=== PATIENT | male | born 1955 | race Caucasian/White ===

== ENCOUNTER → 2016-04-21 | Outpatient (CLI) | payer BC ==
--- NOTE | 2016-04-21 18:24 | PN ---
DATE OF SERVICE: 04/21/2016 This patient is a 60-year-old gentleman who has been followed in the sleep center for treatment of obstructive sleep apnea/hypopnea syndrome. Patient continues to use his CPAP equipment every night for the whole night, basically without any significant problems. No snoring with the machine. [place] Sleepiness Scale is 4. Patient's weight today is 252 pounds, which is about 2 pounds more than one year ago. The patient sleeps well with the equipment and feels well during the day. MEDICATIONS: 1. Bystolic. 2. Clonidine. 3. Amlodipine. 4. Hydrochlorothiazide. 5. Losartan. 6. Potassium supplement. 7. Ranitidine. 8. Atorvastatin. 9. Aspirin. 10. Probiotic. 11. Vitamins. 12. Xanax on p.r.n. basis. During physical exam, patient is in no distress. VITAL SIGNS: BP 149/82, HR 62, RR 16. Height 5 feet 8 inches. Weight 252. BMI 38.3. Neck 19 inches in circumference. Temperature 97.7. Oxygen saturation at room air 94%. HEENT: PERRLA, EOMI. Evaluation of oropharynx showed tongue protrudes midline. NECK: Supple. No JVD. Thyroid is not palpable. LUNGS: Clear to percussion and to auscultation. Good air exchange. No wheezing or rhonchi. HEART: S1, S2 regular. No murmurs, gallops or rubs. ABDOMEN: Soft and nontender. Bowel sounds are present. No organomegaly appreciated. EXTREMITIES: No clubbing or cyanosis. VENEER STAPLER: Awake, alert, and oriented x3. Cranial nerves 2 to 7 intact. There is no fasciculation or atrophy noted. No focal deficits observed. IMPRESSION: 1. Obstructive sleep apnea/hypopnea syndrome, controlled with CPAP. Patient is benefitting from treatment. No snoring. No sleepiness. 2. Hypertension. 3. Obesity. 4. Coronary artery disease. 5. History of anxiety. 6. Diabetes mellitus. 7. Hyperlipidemia. 8. Status post right knee replacement. PLAN: 1. Prescription for all necessary CPAP supplies, including mask, tube, filters. 2. Continue to use CPAP equipment every night for the whole night. 3. Losing weight. 4. Sleep hygiene with regular time in bed for at least 8 hours. 5. Follow-up visit in one year. Thank you very much for allowing me to participate in the management of your patient. Sincerely, Jovanny Salazar MD, PhD, FAASM. Diplomat of [place] [employer], Sleep Medicine Board by [place] [employer] [employer] Glass Sander of [facility] [place]
== END | disposition home or self-care (01) ==
LOC: SLEEP 13:19
PROVIDERS: ATTEND Internal Medicine
DX: G47.33 Obstructive sleep apnea (adult) (pediatric) (principal); I10 Essential (primary) hypertension; E66.9 Obesity, unspecified; Z68.38 Body mass index [BMI] 38.0-38.9, adult; I25.10 Atherosclerotic heart disease of native coronary artery without angina pectoris; F41.9 Anxiety disorder, unspecified; E11.9 Type 2 diabetes mellitus without complications; E78.5 Hyperlipidemia, unspecified; Z96.651 Presence of right artificial knee joint; Z79.899 Other long term (current) drug therapy

== ENCOUNTER → 2017-06-15 | Outpatient (CLI) | payer BC ==
--- NOTE | 2017-06-15 11:52 | SFUN ---
SLEEP STUDY FOLLOW UP NOTE DATE OF SERVICE: 06/15/2017 A 61-year-old gentleman who has been followed in the Sleep Center for treatment of obstructive sleep apnea-hypopnea syndrome. Patient successfully continued to use his CPAP equipment every night for the whole night. He went to [place], took his equipment with him, now he returned back. No snoring with the CPAP. [place] Sleepiness Scale is only 2. Patient sleeps well with CPAP. He does not have awakenings, feels well during the day. I checked his CPAP unit. Usage is 100% of the time, more than 4 hours. Average usage is 7.1 hours. CPAP pressure 11 cm of water. Machine does not have information about patient breathing during the sleep. MEDICATIONS: Bystolic, clonidine, losartan, hydrochlorothiazide, ranitidine, Lipitor, potassium supplement, Celebrex, low-dose aspirin, vitamin D, multivitamins. PHYSICAL EXAM: Patient in no distress. BP 159/86, HR 64, RR 16, height 5, 7-1/2, weight 235.4, BMI 36.2, temperature 97.8, oxygen saturation at room air 96%. OROPHARYNX: Low position of soft palate. HEART: S1-S2 irregular. ABDOMEN: Slightly obese. Neck Supple, no JVD. Thyroid is not palpable. LUNGS Clear to percussion and to auscultation. Good air exchange. No wheezing or rhonchi. EXTREMITIES No clubbing or cyanosis. FILM PAINTER Awake, alert, and oriented X3. Cranial nerves 2 to 7 intact. There is no fasciculation or atrophy. noted. No focal deficits observed. IMPRESSION: 1. Obstructive sleep apnea-hypopnea syndrome. Patient demonstrated 100% compliance with treatment benefitting with treatment. 2. Irregular heartbeats by auscultation. 3. Hypertension, possibly not on full control with medications. Blood pressure increased in the office. 4. Acid reflux. 5. Hyperlipidemia. 6. History of anxiety. 7. Status post right knee replacement. PLAN: 1. Continue treatment with CPAP every night for the whole night. 2. Prescription for all necessary CPAP supplies including mask, tube, filters. 3. We will check if patient is eligible to replace his CPAP unit for the new one. Replacement of the unit if possible to check, also to follow apnea-hypopnea index reading from the machine. 4. Losing weight. 5. Sleep hygiene with regular time in bed for at least 8 hours. 6. No driving if feeling any sleepiness. 7. Patient will follow with his primary care physician for monitoring of his heart. Thank you very much for allowing me to participate in the management of your patient. Sincerely, Jovanny Salazar MD, PhD, FAASM Diplomat of [place] [employer] [employer] [place] [employer] [employer] Loader Machine of [facility] [place] 1. 2. Sincerely. 3. 4. And also in the plan the patient will follow up with his primary care physician for monitoring of his heart. MMODL / IJN: [id number] /
== END | disposition home or self-care (01) ==
LOC: SLEEP 10:10
PROVIDERS: ATTEND Internal Medicine
DX: G47.33 Obstructive sleep apnea (adult) (pediatric) (principal); I49.8 Other specified cardiac arrhythmias; I10 Essential (primary) hypertension; K21.9 Gastro-esophageal reflux disease without esophagitis; E78.5 Hyperlipidemia, unspecified; F41.9 Anxiety disorder, unspecified; Z96.651 Presence of right artificial knee joint; Z79.82 Long term (current) use of aspirin; Z99.89 Dependence on other enabling machines and devices; Z79.899 Other long term (current) drug therapy

== ENCOUNTER → 2018-07-18 | Outpatient (CLI) | payer BC ==
--- NOTE | 2018-07-18 11:36 | SFUN ---
SLEEP CENTER FOLLOW UP NOTE DATE OF SERVICE: 07/19/2018 A 62-year-old gentleman who has been followed in the Sleep Center for treatment of obstructive sleep apnea-hypopnea syndrome. The patient successfully continued to use CPAP equipment every night for the whole night. [place] Sleepiness Scale is 3. No snoring with the CPAP. Patient increased his weight 5 pounds. I checked patient's CPAP unit, patient using it every night 100% of the time. Average usage 6.7 hours. CPAP pressure is 11 cm of water. CPAP unit does not have information about apnea-hypopnea index. MEDICATIONS: Bystolic, clonidine, losartan, hydrochlorothiazide, ranitidine, Lipitor, potassium supplement, Celebrex, low dose aspirin, vitamin D, multivitamins. PHYSICAL EXAM: Patient in no distress. BP 168/77, HR 66, RR 16, height 5 foot 7 inches, weight 240 pounds, body mass index 37.5, temperature 97.7, oxygen saturation at room air 96%. OROPHARYNX: Low position of soft palate. HEART: S1, S2, irregular. ABDOMEN: Slightly obese. Neck Supple, no JVD. Thyroid is not palpable. LUNGS Clear to percussion and to auscultation. Good air exchange. No wheezing or rhonchi. EXTREMITIES No clubbing or cyanosis. POWDER EXPERT Awake, alert, and oriented X3. Cranial nerves 2 to 7 intact. There is no fasciculation or atrophy. noted. No focal deficits observed. IMPRESSION: 1. Obstructive sleep apnea-hypopnea syndrome. Patient demonstrated 100% compliance with treatment. Patient's CPAP unit does not have information about apnea-hypopnea index. No snoring with the machine, benefitting from treatment, but apnea-hypopnea index needs to be checked. 2. Obesity. The patient increased his weight 5 pounds since previous visit. 3. Irregular heartbeat by auscultation. 4. Hypertension. 5. Acid reflux. 6. Hyperlipidemia. 7. History of anxiety. 8. Status post right knee replacement. PLAN: 1. Patient will continue treatment with CPAP every night for the whole night. 2. Prescription for new CPAP unit. I will see patient for followup visit after he receives CPAP unit to check apnea-hypopnea index. Presently, he will continue to use CPAP with the same pressure of 11 cm of water. 3. Sleep hygiene with regular time in bed for at least 8 hours. 4. No driving if feeling sleepiness. 5. Losing weight. Thank you very much for allowing me to participate in the management of your patient. Sincerely, Jovanny Salazar MD, PhD, FAASM Diplomat of [place] [employer] [employer] Medicine Cosmetology Professor of [facility] [place] MMODL / BERNIE: [id number] /
== END | disposition home or self-care (01) ==
LOC: SLEEP 10:37
PROVIDERS: ATTEND Internal Medicine
DX: G47.33 Obstructive sleep apnea (adult) (pediatric) (principal); E66.9 Obesity, unspecified; I49.9 Cardiac arrhythmia, unspecified; I10 Essential (primary) hypertension; K21.9 Gastro-esophageal reflux disease without esophagitis; E78.5 Hyperlipidemia, unspecified; F41.9 Anxiety disorder, unspecified; Z96.651 Presence of right artificial knee joint; Z99.89 Dependence on other enabling machines and devices; Z68.37 Body mass index [BMI] 37.0-37.9, adult

== ENCOUNTER → 2018-09-06 | Outpatient (CLI) | payer BC ==
--- NOTE | 2018-09-06 19:26 | PN ---
PROGRESS NOTE DATE OF SERVICE: 09/06/2018 This patient is a 63-year-old gentleman who has been followed in Sleep Center for treatment of obstructive sleep apnea-hypopnea syndrome. Recently the patient received a new CPAP unit, and today is his first visit after he received his new CPAP machine. He is able to use the machine every night for the whole night without significant problems. [place] Sleepiness Scale today is 5. I checked his CPAP unit. Range of the pressure is 5-12 cm of water, average pressure 11 cm of water. Usage is 100% for more than 4 hours with average usage 6.4 hours. Leak is 17 L/minute, which is borderline. Apnea-hypopnea index is 0.6, which is absolutely perfect. MEDICATIONS: 1. Clonidine. 2. Bystolic. 3. Losartan hydrochlorothiazide. 4. Lipitor. 5. Ranitidine. 6. Potassium supplements. 7. Celebrex. 8. Low-dose aspirin. 9. Vitamin D. 10.Multivitamins. PHYSICAL EXAMINATION: GENERAL: A pleasant patient in no distress. VITAL SIGNS: BP 160/81, HR 68, RR 14, weight 232.6, temperature 97.8, oxygen saturation at room air 93%. HEENT: PERRLA, EOMI. Evaluation of oropharynx showed tongue protrudes midline. Low position of soft palate. Mallampati III-IV. NECK: Supple. No JVD. Thyroid is not palpable. LUNGS: Clear to percussion and to auscultation. Good air exchange. No wheezing or rhonchi. HEART: S1, S2 regular. No murmurs, gallops or rubs. ABDOMEN: Soft and nontender. Bowel sounds are present. No organomegaly. EXTREMITIES: No clubbing or cyanosis. POST SPLITTER: Awake, alert, and oriented X3. Cranial nerves 2 to 7 intact. There is no fasciculation or atrophy. noted. No focal deficits observed. IMPRESSION: 1. Obstructive sleep apnea-hypopnea syndrome. The patient has demonstrated 100% compliance with treatment. Reading of apnea-hypopnea index from the new CPAP unit showed normal apnea-hypopnea index of only 0.2; he is benefitting from treatment. 2. Obesity. 3. Hypertension. 4. Acid reflux. 5. Hyperlipidemia. 6. History of anxiety. 7. Status post right knee replacement. PLAN: 1. Patient will continue to use CPAP equipment every night for the whole night. 2. Watching and losing weight. 3. Sleep hygiene with regular time in bed for at least 8 hours. 4. No driving if feeling any sleepiness. 5. We will maintain prescriptions for all necessary CPAP supplies, including mask, tube, filters. 6. Follow-up visit in one year, or earlier if patient has any problems. Thank you very much for allowing me to participate in the management of your patient. Sincerely, Jovanny Salazar MD, PhD, FAASM Diplomat of [place] [employer] Specialties [employer] Board of Internal Medicine Software Educator of [facility] [place] MMODL / IJN: [id number] /
== END ==
LOC: SLEEP 15:21
PROVIDERS: ATTEND Internal Medicine
DX: G47.33 Obstructive sleep apnea (adult) (pediatric) (principal); K21.9 Gastro-esophageal reflux disease without esophagitis; E78.5 Hyperlipidemia, unspecified; F41.9 Anxiety disorder, unspecified; Z96.651 Presence of right artificial knee joint; Z99.89 Dependence on other enabling machines and devices; Z79.899 Other long term (current) drug therapy; Z79.82 Long term (current) use of aspirin

== ENCOUNTER 2018-10-24 07:57 | Day surgery (SDC) | payer BC ==
[2018-09-04 08:48] VITALS: BMI 36.0
[~2018-10-24 07:57] MED LIST: LACTATED RINGERS 1,000 ML IV SCH; LIDOCAINE 1% 20 ML VIAL (10MG/ML) FOR IV START INTRADERMA PRN
[2018-10-24] MEDS ORDERED: LACTATED RINGERS 1,000 ML IV SCH (08:12)
[2018-10-24 08:19] VITALS: TEMP 97.8
[2018-10-24] MEDS ORDERED: LACTATED RINGERS 1,000 ML IV ONE (08:19)
[2018-10-24] MEDS ORDERED: LIDOCAINE 1% 20 ML VIAL (10MG/ML) FOR IV START INTRADERMA ONE (08:19)
[2018-10-24] MEDS ORDERED: GLYCOPYRROLATE 0.2 MG/ML 2 ML VIAL ONE (08:57)
[2018-10-24] MEDS ORDERED: PROPOFOL 10 MG/ML 20 ML VIAL IV ONE (08:57)
[2018-10-24] MEDS ORDERED: LIDOCAINE 1% INJ 10MG/ML (20 ML MDV) ONE (08:57)
--- NOTE | 2018-10-24 09:17 | P.GSHP ---
History of Present Illness H&P Date: 10/24/18 CHIEF COMPLAINT: GERD and colon screen HISTORY OF PRESENT ILLNESS: The patient is a 63-year-old male who presents with gastroesophageal reflux disease and need for colon screen. Upper and lower endoscopy were offered for further evaluation and management. PAST MEDICAL HISTORY: Please see list. PAST SURGICAL HISTORY: Please see list. MEDICATIONS: Please see list. ALLERGIES: Please see list. SOCIAL HISTORY: No illicit drug use FAMILY HISTORY: No reports of Crohn disease or ulcerative colitis. REVIEW OF ORGAN SYSTEMS: CONSTITUTIONAL: No reports of fevers or chills. GI: Denies any blood in stools or constipation. PHYSICAL EXAM: VITAL SIGNS: Stable GENERAL: Well-developed pleasant in no acute distress. HEENT: No scleral icterus. Extraocular movements grossly intact. Moist buccal mucosa. NECK: Supple without lymphadenopathy. CHEST: Unlabored respirations. Equal bilateral excursions. CARDIOVASCULAR: Regular rate and rhythm. Distal 2+ pulses. ABDOMEN: Soft, nondistended. MUSCULOSKELETAL: No clubbing, cyanosis, or edema. ASSESSMENT: 1. Gastroesophageal reflux disease 2. Colon screen. PLAN: 1. Recommend proceeding with an upper and lower endoscopy Past Medical History Past Medical History: GERD/Reflux, Hyperlipidemia, Hypertension, Osteoarthritis (OA), Sleep Apnea/CPAP/BIPAP Additional Past Medical History / Comment(s): has cpap, rt hip pain History of Any Multi-Drug Resistant Organisms: None Reported Past Surgical History: Heart Catheterization With Stent, Hernia Repair, Joint Replacement, Orthopedic Surgery Additional Past Surgical History / Comment(s): right knee replaced Past Anesthesia/Blood Transfusion Reactions: No Reported Reaction Date of Last Stent Placement:: 2004 Smoking Status: Former smoker - Past Family History Mother Family Medical History: Cancer Medications and Allergies Home Medications Medication Instructions Recorded Confirmed Type Celecoxib [CeleBREX] 200 mg PO DAILY PRN 09/25/13 10/17/18 History Hydrochlorothiazide [Hydrodiuril] 50 mg PO DAILY 09/25/13 10/17/18 History Losartan Potassium 100 mg PO DAILY 09/25/13 10/17/18 History Nebivolol HCl [Bystolic] 20 mg PO BID 09/25/13 10/17/18 History Potassium Chloride [Klor-Con 20] 40 meq PO DAILY 09/25/13 10/17/18 History cloNIDine HCL [Catapres] 0.3 mg PO QID 09/25/13 10/17/18 History Aspirin [Adult Low Dose Aspirin EC] 81 mg PO HS 09/04/18 10/17/18 History Atorvastatin [Lipitor] 20 mg PO HS 09/04/18 10/17/18 History Multivit-Min/FA/Lycopen/Lutein 1 each PO DAILY 09/04/18 10/17/18 History [Centrum Silver Tablet] Allergies Allergy/AdvReac Type Severity Reaction Status Date / Time Penicillins Allergy Rash/Hives Verified 10/17/18 10:28 Surgical - Exam Vital Signs Temp Pulse Resp BP Pulse Ox 97.8 F 50 L 18 174/99 98 10/24/18 08:18 10/24/18 08:18 10/24/18 08:18 10/24/18 08:18 10/24/18 08:18
--- NOTE | 2018-10-24 09:25 | P.PCN ---
Date of Procedure: 10/24/18 Description of Procedure: PREOPERATIVE DIAGNOSIS: Gastroesophageal reflux disease. Dysphagia POSTOPERATIVE DIAGNOSIS: Gastroesophageal reflux disease. Dysphagia Superficial gastritis Duodenitis, acute OPERATION: Esophagogastroduodenoscopy with biopsies along antrum and duodenum SURGEON: Chasidy Boo MD ANESTHESIA: MAC. INDICATIONS: The patient is a 63-year-old male who presents with a history of reflux disease. Benefits and risks of the procedure were described. Informed consent was obtained. DESCRIPTION: The patient was brought into the endoscopy suite and laid in the left lateral decubitus position. An Olympus gastroscope was passed along the posterior oropharynx down to the distal esophagus where the squamocolumnar junction was encountered at 43 cm from the incisors. The stomach was entered and no bile reflux was found. Additional findings are listed below. Biopsies with cold fo rceps were obtained of the antrum. The first through third portion of the duodenum was examined and remarkable for duodenitis. Retroflexion of the scope confirmed Hill grade 2 lower esophageal valve. The squamocolumnar junction demonstrated LA grade A erosive esophagitis. The stomach was desufflated. The patient tolerated the procedure well. FINDINGS: Squamocolumnar junction 43 cm from the incisors. Diaphragmatic hiatus at 43 cm. Hill grade 2 lower esophageal valve. LA grade A erosive esophagitis. Active duodenitis, mild Chronic gastritis RECOMMENDATIONS: Upper endoscopy as needed.
--- NOTE | 2018-10-24 09:41 | P.PCN ---
Date of Procedure: 10/24/18 Description of Procedure: PREOPERATIVE DIAGNOSIS: Personal history of colon polyps Personal history diverticulosis POSTOPERATIVE DIAGNOSIS: Personal history of colon polyps Personal history diverticulosis Colon polyps transverse colon and sigmoid colon Moderate to severe sigmoid diverticulosis without diverticulitis OPERATION: Colonoscopy to the ileocecal valve and appendiceal orifice. Colonoscopy with multiple cold forceps biopsies. SURGEON: Chasidy Boo MD. ANESTHESIA: MAC. INDICATIONS: The patient is a 63-year-old male who presents for colonoscopy screening. Last colonoscopy over 5 years ago. Benefits and risks were described and informed consent was obtained. DESCRIPTION OF PROCEDURE: The patient had undergone Suprep. He had been brought into the operating room and laid in the left lateral decubitus position. After adequate intravenous sedation, the rectum was examined with 2% lidocaine jelly. The prostate was unremarkable. No external hemorrhoids were encountered. The rectal tone was within normal limits. No lesions were palpated in the rectal vault. An Olympus colonoscope was advanced until the ileocecal valve and appendiceal orifice were clearly viewed. The prep was good with visualization of the mucosal folds. The scope was removed with visualization of each mucosal fold. Moderate to severe sigmoid diverticulosis was found. Colonic polyps were found and addressed with cold forcep biopsy or snare polypectomy. No evidence of focal colitis was found. Retroflexion of the scope demonstrated grade no internal hemorrhoids without active bleeding or inflammation. The colon was desufflated. The patient had tolerated the procedure well. Withdrawal time was over 6 minutes. FINDINGS: Aronchick preparation quality scale 1 (1-5) No internal hemorrhoids No external hemorrhoids No arteriovenous malformations Moderate to severe sigmoid diverticulosis without diverticulitis Removal of 2 polyps: - Cold forceps biopsy at 20 cm from the anal verge, 4 mm polyp, sigmoid colon - Cold forceps biopsy at 70 cm from the anal verge, 4 mm polyp, transverse colon No focal colitis. RECOMMENDATIONS: Repeat colonoscopy 5 years, 2023 Plan - Discharge Summary Discharge Rx Participant: No New Discharge Prescriptions: No Action cloNIDine HCL [Catapres] 0.3 mg PO QID Potassium Chloride [Klor-Con 20] 40 meq PO DAILY Hydrochlorothiazide [Hydrodiuril] 50 mg PO DAILY Nebivolol HCl [Bystolic] 20 mg PO BID Celecoxib [CeleBREX] 200 mg PO DAILY PRN PRN Reason: Pain Losartan Potassium 100 mg PO DAILY Multivit-Min/FA/Lycopen/Lutein [Centrum Silver Tablet] 1 each PO DAILY Atorvastatin [Lipitor] 20 mg PO HS Aspirin [Adult Low Dose Aspirin EC] 81 mg PO HS Discharge Medication List Celecoxib [CeleBREX] 200 mg PO DAILY PRN 09/25/13 [History] Hydrochlorothiazide [Hydrodiuril] 50 mg PO DAILY 09/25/13 [History] Losartan Potassium 100 mg PO DAILY 09/25/13 [History] Nebivolol HCl [Bystolic] 20 mg PO BID 09/25/13 [History] Potassium Chloride [Klor-Con 20] 40 meq PO DAILY 09/25/13 [History] cloNIDine HCL [Catapres] 0.3 mg PO QID 09/25/13 [History] Aspirin [Adult Low Dose Aspirin EC] 81 mg PO HS 09/04/18 [History] Atorvastatin [Lipitor] 20 mg PO HS 09/04/18 [History] Multivit-Min/FA/Lycopen/Lutein [Centrum Silver Tablet] 1 each PO DAILY 09/04/18 [History]
[2018-10-24 09:46] VITALS: RESP 16
[2018-10-24 10:06] VITALS: BP 149/77; PULSE 65
== END 2018-10-24 10:57 | disposition home or self-care (01) ==
LOC: ORWHC2ENDO 07:57
PROVIDERS: ATTEND Surgery Plastic and Reconstructive Surgery
DX: Z12.11 Encounter for screening for malignant neoplasm of colon (principal); D12.5 Benign neoplasm of sigmoid colon; D12.3 Benign neoplasm of transverse colon; K29.80 Duodenitis without bleeding; K21.0 Gastro-esophageal reflux disease with esophagitis; K57.30 Diverticulosis of large intestine without perforation or abscess without bleeding; R13.10 Dysphagia, unspecified; K29.50 Unspecified chronic gastritis without bleeding; I10 Essential (primary) hypertension; E78.5 Hyperlipidemia, unspecified; M19.90 Unspecified osteoarthritis, unspecified site; G47.30 Sleep apnea, unspecified; Z99.89 Dependence on other enabling machines and devices; Z96.651 Presence of right artificial knee joint; Z87.891 Personal history of nicotine dependence; Z86.010 Personal history of colon polyps; Z88.0 Allergy status to penicillin; Z79.82 Long term (current) use of aspirin
CPT/HCPCS: 45380; 43239; J2001; J2704; 88305; 88342

== ENCOUNTER → 2019-12-12 | Outpatient (CLI) | payer MEDICARE, BC ==
--- NOTE | 2019-12-13 07:38 | SFUN ---
SLEEP CENTER FOLLOW UP NOTE DATE OF SERVICE: 12/12/2019 This 64-year-old gentleman who has been followed in Sleep Center for treatment of obstructive sleep apnea-hypopnea syndrome. The patient continued to use CPAP equipment every night for the whole night. He does not snore with the machine. [place] Sleepiness Scale today is 5. I checked patient's CPAP unit. Range of the pressure 5 to 12, average pressure 7.6. Usage 29/30 nights for more than 4 hours with average usage 5.9 hours per night. Leak is 10 L/minute which is borderline. Apnea-hypopnea index is only 0.2, which is perfect. Patient using a DreamWear nasal pillow mask and he likes it. MEDICATIONS: Celebrex 200 mg, omeprazole 20 mg, clonidine 0.3, 300 mg, losartan 100 mg, hydrochlorothiazide 50 mg, potassium supplement 20 mEq daily, Lipitor 20 mg, BuSpar 10 mg. PHYSICAL EXAMINATION: GENERAL: Patient in no distress. VITAL SIGNS: BP 134/76, HR 70, RR 15, height 5 feet 7 inches, weight 215, BMI 33.6, temperature 97.6, oxygen saturation from room air 96%. HEENT: PERRLA, EOMI. Oropharynx low position of soft palate. Mallampati 3-4. NECK: Supple, no JVD. Thyroid is not palpable. LUNGS: Clear to percussion and to auscultation. Good air exchange. No wheezing or rhonchi. HEART: S1, S2 regular. No murmurs, gallops, or rubs. ABDOMEN: Obese. EXTREMITIES: No clubbing or cyanosis. HAIR BOILER: Awake, alert, and oriented X3. Cranial nerves 2 to 7 intact. There is no fasciculation or atrophy. noted. No focal deficits observed. IMPRESSION: 1. Obstructive sleep apnea-hypopnea syndrome. Patient demonstrated 100% compliance with treatment, benefitting from treatment. 2. Hypertension. 3. Obesity. 4. Acid reflux. 5. Hyperlipidemia. 6. History of anxiety. 7. Status post right knee replacement. PLAN: 1. Patient will continue to use PAP equipment every night for the whole night. 2. Sleep hygiene with regular time in bed for at least 7-1/2 to 8 hours. 3. Precautions related to driving. No driving if feeling sleepiness. 4. I will maintain all necessary prescription for PAP supplies including mask, tube, filters. 5. Watching weight. 6. No driving if feeling sleepiness. 7. Follow-up visit in 6 months or earlier if patient has any problems. Thank you very much for allowing me to participate in management of your patient. Sincerely, Jovanny Salazar MD, PhD, FAASM Diplomat of [place] [employer] [place] [employer] Recreation Manager of [facility] [place] MMODL / MORENITAN: [id number] /
== END | disposition home or self-care (01) ==
LOC: SLEEP 17:01
PROVIDERS: ATTEND Internal Medicine
DX: G47.33 Obstructive sleep apnea (adult) (pediatric) (principal); I10 Essential (primary) hypertension; E66.9 Obesity, unspecified; K21.9 Gastro-esophageal reflux disease without esophagitis; E78.5 Hyperlipidemia, unspecified; Z99.89 Dependence on other enabling machines and devices; Z86.59 Personal history of other mental and behavioral disorders; Z96.651 Presence of right artificial knee joint

== ENCOUNTER → 2020-03-02 | Outpatient (CLI) | payer MEDICARE, BC ==
[2020-03-02 12:48] LABS: HCT 43.9 % (39.0-53.0); HGB 15.3 gm/dL (13.0-17.5); MCH 30.1 pg (25.0-35.0); MCHC 34.9 g/dL (31.0-37.0); MCV 86.1 fL (80.0-100.0); Mean Platelet Volume 6.6; Platelet Count 314 k/uL (150-450); RDW 12.4 % (11.5-15.5); WBC 5.4 k/uL (3.8-10.6)
[2020-03-02 12:49] LABS: Appearance,Urine Clear (Clear); Bilirubin,Urine Negative (Negative); Blood,Urine Negative (Negative); Color,Urine Light Yellow; Glucose,Urine (UA) 4+ (Negative); Ketones,Urine Negative (Negative); Leukocyte Esterase,Urine Negative (Negative); Nitrite,Urine Negative (Negative); PH, Urine 5.5 (5.0-8.0); Protein,Urine Negative (Negative); Specific Gravity,Urine 1.012 (1.001-1.035); Urobilinogen,Urine <2.0 mg/dL (<2.0)
[2020-03-02 12:57] LABS: ALT 34 U/L (4-49); AST 28 U/L (17-59); African American GFR (CKD) >90 (>60 ml/min/1.73 sqM); Albumin 4.5 g/dL (3.5-5.0); Alkaline Phosphatase 91 U/L (38-126); Anion Gap 5 mmol/L; Blood Urea Nitrogen 16 mg/dL (9-20); Calcium 9.6 mg/dL (8.4-10.2); Carbon Dioxide 35 mmol/L (22-30); Chloride 99 mmol/L (98-107); Glucose 106 mg/dL (74-99); Non-African American GFR(CKD) >90 (>60 ml/min/1.73 sqM); Potassium 3.5 mmol/L (3.5-5.1); Sodium 139 mmol/L (137-145); Total Protein 7.1 g/dL (6.3-8.2)
[2020-03-02 12:58] LABS: Partial Thromboplastin Time 25.8 sec (22.0-30.0); Prothrombin Time 10.4 sec (9.0-12.0)
== END | disposition home or self-care (01) ==
LOC: LABPAT 11:28
PROVIDERS: ATTEND Orthopaedic Surgery
DX: Z01.818 Encounter for other preprocedural examination (principal); Z01.812 Encounter for preprocedural laboratory examination
CPT/HCPCS: 36415; 80053; 81003; 85027; 85610; 85730; 86850; 86900; 86901; 87070

== ENCOUNTER 2020-03-12 05:31 | Day surgery (SDC) | payer MEDICARE, BC ==
[2020-03-04 14:03] VITALS: BMI 32.5
[~2020-03-12 05:31] MED LIST changes: +ACETAMINOPHEN TAB 500 MG TAB PO PRN; +DEXAMETHASONE SOD PHOSPHATE 4 MG/ML 1 ML VIAL IV ONE; +GABAPENTIN 300 MG CAP PO PRN; +HYDROmorphone 0.5 MG/0.5 ML SYRINGE IVP PRN; +LIDOCAINE 1% (10MG/ML) FOR IV START INTRADERMA PRN; -LIDOCAINE 1% 20 ML VIAL (10MG/ML) FOR IV START INTRADERMA PRN; +MELOXICAM 7.5 MG TAB PO PRN; +MIDAZOLAM 2 MG/2 ML VIAL IV PRN; +ONDANSETRON 4 MG/2 ML VIAL IVP ONE; +TRANEXAMIC ACID 1,000 MG in SODIUM CHLORIDE 0.9% 100 ML IVPB PRN
[2020-03-12 06:00] LABS: Glucose,Whole Blood 145 mg/dL (75-99)
[2020-03-12] MEDS ORDERED: TRANEXAMIC ACID 1,000 MG/10 ML VIAL ONE (06:54)
[2020-03-12] MEDS ORDERED: SODIUM CHLORIDE 0.9% 100 ML BAG ONE (06:54)
[2020-03-12] MEDS ORDERED: HEPARIN SODIUM,PORCINE 10,000 UNIT/ML 1 ML VIAL ONE (06:54)
[2020-03-12] MEDS ORDERED: PROPOFOL 10 MG/ML 20 ML VIAL IV ONE (06:54)
[2020-03-12] MEDS ORDERED: fentaNYL (PF) 50 MCG/ML 2 ML AMP ONE (06:54)
[2020-03-12] MEDS ORDERED: SODIUM CHLORIDE 0.9% IRRIG 1,000 ML BTL IRRIGATION ONE (06:54)
[2020-03-12] MEDS ORDERED: MIDAZOLAM 2 MG/2 ML VIAL ONE (06:54)
[2020-03-12] MEDS ORDERED: ONDANSETRON 4 MG/2 ML VIAL IVP PRN (06:59)
[2020-03-12] MEDS ORDERED: HYDROmorphone 0.5 MG/0.5 ML SYRINGE IVP PRN ×2 (06:59)
[2020-03-12] MEDS ORDERED: HYDROmorphone 0.2 MG/1 ML SYRINGE IVP PRN (06:59)
[2020-03-12] MEDS ORDERED: HYDROcodone/APAP 5-325MG 1 EACH TAB PO PRN ×2 (06:59)
[2020-03-12] MEDS ORDERED: NALOXONE 0.4 MG/ML 1 ML VIAL IV PRN (06:59)
[2020-03-12] MEDS ORDERED: SODIUM CHLORIDE 0.9% 1,000 ML IV SCH (07:00)
[2020-03-12] MEDS ORDERED: HYDROcodone/APAP 7.5-325MG 1 EACH TAB PO PRN ×2 (07:03)
[2020-03-12] MEDS: ROPIVACAINE 246.25 MG, EPINEPHrine 0.5 MG, KETOROLAC (30 mg/mL) 30 MG, cloNIDine HCL/PF... MISCELLANE PRN ×10 (07:24→07:57)
--- NOTE | 2020-03-12 08:17 | P.OP ---
Date of Procedure: 03/12/20 Preoperative Diagnosis: Severe osteoarthritis right hip Postoperative Diagnosis: Severe osteoarthritis right hip Procedure(s) Performed: Right total hip arthroplasty with a direct anterior approach Implants: [employer] Polarstem standard size 3 [employer] R3, 3 hole hemispherical acetabular shell, 52 mm [employer] Reflection 6.5 mm cancellus screw, 20 mm 2 [employer] R3, XLPE 20 acetabular liner [employer] Oxinium femoral head 36 m, +4 All components were press-fit. The articulation is Oxinium on polyethylene. Anesthesia: spinal Surgeon: Ignacio Damico Dental Technologist #1: Chey Jefferson Estimated Blood Loss (ml): 150 (60 mL returned with Cell Saver) Pathology: other (Femoral head) Condition: stable Disposition: PACU Indications for Procedure: After failure of conservative treatment we discussed the surgical and nonsurgical treatment options at length. Patient wishes to proceed with a total hip arthroplasty with a direct anterior approach. Complications specific to this procedure were discussed at length, including but not limited to infection, leg length discrepancy, dislocation, nerve injury, and fracture. Covid-19 was also discussed at length with the patient, and they are aware of the current policies and procedures. The patient was given the option of delaying surgery, but they elect to proceed knowing these risks. Patient is aware of all these complications and informed consent was obtained Operative Findings: The operative findings are consistent with severe osteoarthritis of the right hip Description of Procedure: Patient was seen and evaluated in the preoperative area and the consent was reviewed. The operative site was marked with a skin marker. The patient was then brought to the operating room and given preoperative antibiotics intravenously. 1 g of Tranexamic acid was also given intravenously. A spinal anesthetic was administered by the anesthesia department. The patient was then placed on the [place] table with the bony prominences well-padded. The hip area was then prepped with a ChloraPrep solution and draped in the usual sterile fashion. A universal timeout was then performed, which confirmed the patient's name, surgical site, ALLERGIES, and procedure being performed on the consent. Next the incision site was located at 1 cm distal and 1 cm lateral to the anterior superior iliac spine. The skin and subcutaneous tissues were sharply incised. Incision was carefully dissected down to the fascia overlying the tensor fascia heena muscle. This fascia was then incised in line with the incision. Care was taken to stay laterally in order to avoid injuring the lateral femoral cutaneous nerve. Next, using blunt finger dissection, the tensor fascia heena muscle was dissected off its investing fascia. The muscle was then carefully retracted laterally with a cobra retractor over the lateral neck of the femur. Next, the circumflex vessels were identified and cauterized using the AquaMantis device. The anterior hip capsule was then exposed. The capsule was then opened and an inverted T fashion. Cobra retractors were then placed intracapsularly. The retractors were maintained intracapsular throughout the procedure. The proximal femur was then visualized. A small amount of traction was placed on the leg. The femoral neck was then osteotomized appropriate level above the lesser trochanter. A small wedge of bone was then removed from the remaining femoral head. Next, using a corkscrew the femoral head was removed from the acetabulum. On gross visual inspection, the femoral head had complete loss of articular cartilage and multiple periarticular osteophytes. The femoral head was then measured. Attention was then turned to the acetabulum. The acetabulum was exposed and any remaining labrum was excised. Sequential reaming of the acetabulum was performed using fluoroscopic guidance until there was a good bed of bleeding cancellus bone. When the appropriate size was reached, a trial was then placed. The position and fit of the trial was checked with fluoroscopy. The trial was then removed. Then, using fluoroscopic guidance, the final implant was impacted at 20 of anteversion and 40 of abduction, and fully seated in the acetabulum. 2 screws were then placed in the acetabulum. Again fluoroscopy was used to check position of the screws. Next, the liner was then impacted, with a 20 elevated liner located in the anterior superior quadrant. Component locking was confirmed. Attention was then directed to the femur. With the aid of the [place] table, the femur was externally rotated to approximately 130, extended, and adducted under the opposite leg. A side hook was then placed under the proximal femur, and the side hook elevator was used to elevate the proximal femur while releasing the capsule. Retractors were then placed. A capsular release was performed, as well as a release of the conjoined tendon, which afforded excellent visualization of the proximal femur. Next, a box osteotome was used to lateralize the proximal femur. A crank hand was then used to locate the femoral canal. Sequential broaching was then performed with appropriate size which afforded excellent fixation in the proximal femur. A trial was then placed with appropriate head and neck, and the hip was gently reduced with the aid of the [place] table. Fluoroscopy was then used to check position of the components, as well as to ensure equal leg lengths. The hip was then gently dislocated and the trials were then removed. Final implants were then impacted and the hip was again reduced. Final fluoroscopic x-rays confirmed that the components were in anatomic position, as well as equal leg lengths. The hip was also taken through range of motion, and found to be stable. The hip was then copiously irrigated with antibiotic solution with pulsatile lavage. The hip was then irrigated with Irrisept solution. The soft tissues were then injected with a ropivacaine solution, which consisted of 246.25 mg of ropivacaine, 0.5 mg of epinephrine, 30 mg of Toradol, 80 g of clonidine, and 48.45 mL of sterile water, for a total of 100 mL of fluid injected. A second dose of 1 g of Tranexamic acid was also given intravenously. Any blood collected by Cell Saver was then returned to the patient at this time. The fascia was then closed with 2-0 strata fix suture. The subcutaneous tissue was closed with 3-0 Vicryl. The subcuticular tissue was closed with 3-0 strata fix suture. The skin was then closed with Exofin skin glue. After the glue and dried, and Optifoam silver impregnated dressing was applied. The patient was then transferred to the recovery room in stable condition. The nurse practitioner physicians assistant RAJESH Gonzalez was required due to the complexity of surgery, and the need for skilled surgical first assistant for positioning, draping, exposure, retraction, and closure of the wound.
[2020-03-12 08:28] VITALS: TEMP 97.2
--- NOTE | 2020-03-12 08:54 | XR ---
EXAMINATION TYPE: XR Hip Limited RT DATE OF EXAM: 03/12/2020 COMPARISON: None HISTORY: Right hip replacement TECHNIQUE: AP view right hip FINDINGS: Femoral and acetabular components of in place. No acute fractures are evident. Postsurgical soft tissue changes are evident. IMPRESSION: 1. No acute fracture post right hip replacement.
[2020-03-12 09:17] VITALS: BP 147/77; PULSE 62; RESP 18
--- NOTE | 2020-03-12 09:32 | XR ---
Fluoroscopy INDICATION: Pain FINDINGS: Fluoroscopy time: 43 seconds. Images obtained: 2. IMPRESSIONS: 1. Documentation of fluoroscopy.
[2020-03-12 12:02] LABS: Glucose,Whole Blood 168 mg/dL (75-99)
[2020-03-12] MEDS: cloNIDine HCL 0.1 MG TAB PO SCH ×2 (12:26→17:08)
[2020-03-12] MEDS: POTASSIUM CHLORIDE ER 20 MEQ TAB.ER PO SCH ×2 (12:26→17:09)
[2020-03-12] MEDS ORDERED: LABETALOL 100 MG TAB PO SCH (15:00)
[2020-03-12] MEDS ORDERED: ASPIRIN 325 MG TAB PO SCH (21:00)
== END 2020-03-12 17:32 | disposition home health service (06) ==
LOC: OR 05:31 → 4SSUR 08:23 → EDSTATUS 13:50 → OR 17:32
PROVIDERS: ATTEND Orthopaedic Surgery
DX: M16.11 Unilateral primary osteoarthritis, right hip (principal); M25.751 Osteophyte, right hip; I10 Essential (primary) hypertension; I25.10 Atherosclerotic heart disease of native coronary artery without angina pectoris; G47.33 Obstructive sleep apnea (adult) (pediatric); E11.9 Type 2 diabetes mellitus without complications; K21.9 Gastro-esophageal reflux disease without esophagitis; F41.9 Anxiety disorder, unspecified; N40.0 Benign prostatic hyperplasia without lower urinary tract symptoms; E29.1 Testicular hypofunction; E55.9 Vitamin D deficiency, unspecified; Z95.5 Presence of coronary angioplasty implant and graft; Z88.0 Allergy status to penicillin; Z79.82 Long term (current) use of aspirin; Z79.899 Other long term (current) drug therapy; Z96.651 Presence of right artificial knee joint; Z98.890 Other specified postprocedural states; Z82.49 Family history of ischemic heart disease and other diseases of the circulatory system; Z82.3 Family history of stroke; Z97.3 Presence of spectacles and contact lenses; Z87.891 Personal history of nicotine dependence
CPT/HCPCS: 27130; 97110; 97161; 86891; 84132; 73501; C1776; J0171; J1100; J0690; J2405; J1885; J2795; J0735; 86850; 86900; 86901; 88300

== ENCOUNTER → 2020-10-22 | Outpatient (CLI) | payer MEDICARE, BC ==
--- NOTE | 2020-10-23 10:24 | SFUN ---
SLEEP CENTER FOLLOW UP NOTE DATE OF SERVICE: 10/22/2020 This 65-year-old gentleman has been followed in Sleep Center for treatment of obstructive sleep apnea-hypopnea syndrome. The patient continues to use his CPAP equipment every night for the whole night. He does not snore with the machine. No sleepiness during the day. [place] Sleepiness Scale today is 4, which is totally normal. I checked his CPAP unit. Range of the pressure is 5-12 with average pressure 7.1. Usage is 100% of nights for more than 4 hours with average usage 6 hours per night. Leak is 14 L/minute, which is in normal range. Apnea-hypopnea index is only 0.3, which is perfect. MEDICATIONS: 1. Clonidine 0.3 mg once a day. 2. Labetalol 300 mg once a day. 3. Losartan 100 mg once a day. 4. Hydrochlorothiazide 50 mg once a day. 5. Lipitor 20 mg once a day. 6. Omeprazole 20 mg once a day. 7. Aspirin 81 mg once a day. 8. Invokana 100 mg once a day. 9. Vitamin C, B12 and potassium supplement. PHYSICAL EXAMINATION: GENERAL: A pleasant patient without any distress. VITAL SIGNS: BP 128/77, HR 68, RR 15, height 5 feet 7-1/2 inches, weight 215 pounds, body mass index 33.1, temperature 98.2, oxygen saturation at room air 97%. HEENT: PERRLA, EOMI, evaluation of oropharynx showed tongue protrudes midline. Low position of soft palate. Mallampati 3-4. NECK: Supple, no JVD. Thyroid is not palpable. LUNGS: Clear to percussion and to auscultation. Good air exchange. No wheezing or rhonchi. HEART: S1, S2 regular. No murmurs, gallops, or rubs. ABDOMEN: Obese. EXTREMITIES: No clubbing or cyanosis. BARNWORKER GROOM: Awake, alert, and oriented X3. Cranial nerves 2 to 7 intact. There is no fasciculation or atrophy. noted. No focal deficits observed. IMPRESSION: 1. Obstructive sleep apnea-hypopnea syndrome. Patient demonstrated 100% compliance with treatment, benefitting from treatment. 2. Hypertension. 3. Obesity. 4. Hyperlipidemia. 5. History of anxiety. 6. Acid reflux. 7. Status post right knee replacement. 8. restaurant delivery driver. PLAN: 1. Patient will continue to use PAP equipment every night for the whole night. 2. Sleep hygiene with regular time in bed for at least 7-1/2 to 8 hours. 3. Precautions related to driving. No driving if feeling sleepiness. Patient is aware of civil and criminal liability for unsafe driving and promised to follow recommendations. 4. I will maintain all necessary prescription for PAP supplies including mask, tube, filters. 5. Watching weight. 6. Follow-up visit in 6 months or earlier if patient has any problems. The patient may continue to drive commercial vehicle with above-mentioned precautions. Thank you very much for allowing me to participate in the management of your patient. Sincerely, Jovanny Salazar MD, PhD, FAASM Diplomat of [place] [employer] Sleep Medicine Board of [place] [employer] Insurance Verify Rep of [facility] [place] [employer] / BERNIE: [id number] /
== END | disposition home or self-care (01) ==
LOC: SLEEP 14:41
PROVIDERS: ATTEND Internal Medicine
DX: G47.33 Obstructive sleep apnea (adult) (pediatric) (principal); I10 Essential (primary) hypertension; E66.9 Obesity, unspecified; E78.5 Hyperlipidemia, unspecified; K21.9 Gastro-esophageal reflux disease without esophagitis; Z96.651 Presence of right artificial knee joint

== ENCOUNTER → 2022-01-11 | Outpatient (CLI) | payer MEDICARE, BC | END | disposition home or self-care (01) | LOC: LABWHC1 14:14 | PROVIDERS: ATTEND Internal Medicine | DX: I10 Essential (primary) hypertension (principal); R06.02 Shortness of breath | CPT/HCPCS: 36415; 82088; 82533; 84244; 84443 ==

== ENCOUNTER → 2022-08-11 | Outpatient (CLI) | payer MEDICARE, BC ==
--- NOTE | 2022-08-11 08:09 | MM ---
Reason for Exam: Clinical finding. Baseline mammogram. Indicated Problems: Pain of both sides (Global) for 1 Month(s). Prior Study Comparison: Patient's first Mammogram. Tissue Density: The breast tissue is almost entirely fat. Findings: Analyzed By CAD. Bilateral retroareolar flame-shaped densities. Include represent gynecomastia. No new suspicious masses, calcifications or distortions. Overall Assessment: Incomplete: need additional imaging evaluation, BI-RAD 0 Management: Diagnostic Breast Ultrasound of both breasts. Ultrasound for further evaluation of patient's pain. Results were given to the patient verbally at the time of exam. Patient should continue monthly self-breast exams. A clinical breast exam by your physician is recommended on an annual basis. This exam should not preclude additional follow-up of suspicious palpable abnormalities. Note on Shirley scores and lifetime risk: 1. A Shirley score greater than 3% is considered moderate risk. If this is the case, consider specialist referral to assess eligibility for a risk reducing agent. 2. If overall lifetime risk for the development of breast cancer is 20% or higher, the patient may qualify for future screening with alternating mammogram and breast MRI. Electronically signed and approved by: Mahamed Dobson DO
--- NOTE | 2022-08-11 08:40 | USB ---
Reason for Exam: Clinical finding. Technique: Method: Targeted. Findings: The area of palpable concern of both breasts, the axilla of both breasts and the retroareolar of both breasts were scanned. Imaged: Ultrasound imaging of: Area of concern, retroareolar region and axilla. No evidence for organizing fluid collection or mass. Overall Assessment: Benign, BI-RAD 2 Management: No follow up is required for this exam. Clinical management for patient's pain. A clinical breast exam by your physician is recommended on an annual basis and results should be correlated with mammographic findings. This exam should not preclude additional follow-up of suspicious palpable abnormalities. Results were given to the patient verbally at the time of exam. Electronically signed and approved by: Mahamed Dobson DO
== END | disposition home or self-care (01) ==
LOC: RADMAMWWP 07:29
PROVIDERS: ATTEND Family Medicine
DX: N64.4 Mastodynia (principal)
CPT/HCPCS: 77066; 76642; G0279; 77062

== ENCOUNTER → 2024-01-10 | Outpatient (CLI) | payer MEDICARE ==
[2024-01-10 13:46] VITALS: BP 119/72; PULSE 64; RESP 16; TEMP 97.7
--- NOTE | 2024-01-10 15:28 | P.SLEEP ---
History of Present Illness DATE: 01/10/2024 CONSULTATION/NEW PATIENT EVALUATION HISTORY OF PRESENT ILLNESS/SLEEP-WAKE EVALUATION: 68-year-old gentleman had been evaluated in the sleep center for obstructive sleep apnea hypopnea syndrome. Last time I saw patient was in 3 years ago. Patient continued to use his CPAP equipment every night for the whole night. I checked CPAP unit. Range of the pressure 5-12, average 8.5. Usage is 100% of nights, average 6.4 hours per night. Leak is 11 L/min, which is in normal range. Apnea hypopnea index is 0.4, which is normal SLEEP SCHEDULE: Usually sleep schedule from 9:30 PM to 5 AM on working days and until 7 AM on weekend. FALLING ASLEEP: No problems with falling asleep. DURING SLEEP: No snoring with CPAP. Patient sleeps through the night. Sometimes feeling of leg discomfort secondary to neuropathy of the feet area. No history of hypnogogical hallucinations, sleep paralysis, or cataplexy. DURING THE DAY/WAKE STATE: No significant sleepiness. [place] sleepiness scale is 3. Patient does not take naps. PAST MEDICAL HISTORY: Hypertension, diabetes mellitus, hyperlipidemia, acid reflux, peripheral neuropathy. PAST SURGICAL HISTORY: Status post bilateral knee replacement, status post right hip replacement, status post tonsillectomy. MEDICATIONS: Labetalol 300 mg 3 times a day, spironolactone 50 mg once a day, valsartan 160 mg once a day, farxiga 10 mg once a day, gabapentin 300 mg once a day, Lipitor 20 mg once a day, omeprazole 20 mg once a day. SOCIAL HISTORY: Please see below. FAMILY HISTORY: Hypertension, cancer. REVIEW OF SYSTEMS: No snoring or awakenings from sleep while using CPAP. No fevers. No double vision. No recent chest pain. No shortness of breath. No abd ominal pain. No bleeding episodes. No blood in urine. No seizure episodes. PHYSICAL EXAMINATION: GENERAL: A pleasant patient without any distress. VITAL SIGNS: Please see below, weight 235 pounds, BMI 36.8. HEENT: PERRLA, EOMI. Evaluation of oropharynx showed tongue protrudes midline, low position of soft palate Mallampati 4. NECK: Supple. No JVD. Thyroid is not palpable. 19-3/4 inches in circumference. LUNGS: Clear to percussion and to auscultation. Good air exchange. No wheezing or rhonchi. HEART: S1, S2 regular. No murmurs, gallops or rubs. ABDOMEN: Soft and nontender. Bowel sounds are present. No organomegaly appreciated. EXTREMITIES: No clubbing or cyanosis. SALES APPOINTMENT COORDINATOR: Awake, alert, and oriented x3. Cranial nerves 2 to 7 intact. There is no fasciculation or atrophy noted. No focal deficits observed. ASSESSMENT: 1. Obstructive sleep apnea hypopnea syndrome, patient demonstrated great compliance with CPAP treatment, benefiting from treatment, normal respiration on CPAP. 2. Obesity, BMI 36.8. 3. Hypertension. 4. Diabetes mellitus. 5. Peripheral neuropathy. 6 . Hyperlipidemia. 7. Acid reflux. 8. Status post bilateral knee replacement. 9 . Status post right hip replacement. 10. Status post tonsillectomy. PLAN: 1. Patient will continue to use CPAP equipment every night for the whole night. 2. Prescription for all necessary CPAP supplies including nasal pillows AirFit P30 small size. 3. Preferable position during sleep on the side. 4. No driving if patient feels any sleepiness. Patient is aware of civil and criminal liability for unsafe driving. 5. Sleep hygiene with regular sleep time for at least 7.5-8 hours. 6. Watching and losing weight. 7. Follow-up visit in 8 months, or earlier if patient has any problems Thank you very much for referring this patient for consultation. Sincerely, Jovanny Salazar MD, PhD, FAASM. Diplomat of [place] [employer], Sleep Medicine Board by [place] [place] [employer] Inspector And Clipper of [facility] [place] cc: Dane Gallo DO Past Medical History Past Medical History: Diabetes Mellitus, GERD/Reflux, Hyperlipidemia, Hypertension, Osteoarthritis (OA), Sleep Apnea/CPAP/BIPAP Additional Past Medical History / Comment(s): has cpap, rt hip pain History of Any Multi-Drug Resistant Organisms: None Reported Past Surgical History: Heart Catheterization With Stent, Hernia Repair, Joint Replacement, Orthopedic Surgery Additional Past Surgical History / Comment(s): right knee replaced Past Anesthesia/Blood Transfusion Reactions: No Reported Reaction Date of Last Stent Placement:: 2004 Past Psychological History: No Psychological Hx Reported Smoking Status: Former smoker Past Alcohol Use History: None Reported Additional Past Alcohol Use History / Comment(s): smoked 25-30 years <1ppd quit 1999 Past Drug Use History: None Reported - Past Family History Mother Family Medical History: Cancer Father Family Medical History: Hypertension Medications and Allergies Home Medications Medication Instructions Recorded Confirmed Type Losartan Potassium 100 mg PO DAILY 09/25/13 03/12/20 History Potassium Chloride [Klor-Con 20] 20 meq PO QID 09/25/13 03/12/20 History cloNIDine HCL [Catapres] 0.3 mg PO QID 09/25/13 03/12/20 History Aspirin [Adult Low Dose Aspirin EC] 81 mg PO Q48H 09/04/18 03/12/20 History Atorvastatin [Lipitor] 20 mg PO HS 09/04/18 03/12/20 History Ascorbic Acid [Vitamin C] 1,000 mg PO DAILY 03/04/20 03/12/20 History Canagliflozin [Invokana] 100 mg PO DAILY 03/04/20 03/12/20 History Ibuprofen [Motrin] 800 mg PO Q8H PRN 03/04/20 03/12/20 History Labetalol [Trandate] 300 mg PO TID 03/04/20 03/12/20 History Vitamin B Complex 1 each PO DAILY 03/04/20 03/12/20 History hydroCHLOROthiazide [Hydrodiuril] 50 mg PO DAILY 03/04/20 03/12/20 History Fluticasone Nasal [place] [Flonase 2 spr EA NOSTRIL DAILY 03/05/20 03/12/20 History Nasal [place]] Aspirin 325 mg PO BID #60 tab 03/12/20 Rx Celecoxib [CeleBREX] 200 mg PO DAILY 5 Days #5 capsule 03/12/20 Rx Gabapentin 300 mg PO BID 5 Days #10 cap 03/12/20 Rx HYDROcodone/APAP 7.5-325MG [[place] 1 - 2 tab PO Q6H PRN #32 tab 03/12/20 Rx 7.5-325] Ondansetron [Zofran ODT] 4 mg PO Q8HR PRN #10 tab 03/12/20 Rx Sennosides [Senokot] 2 tab PO DAILY PRN #60 tablet 03/12/20 Rx Allergies Allergy/AdvReac Type Severity Reaction Status Date / Time Penicillins Allergy Rash/Hives Verified 03/12/20 05:50 Physical Exam Vitals: Vital Signs Temp Pulse Resp BP Pulse Ox 01/10/24 13:44 97.7 F 64 16 119/72 96 Intake and Output 01/10/24 01/10/24 01/10/24 06:59 14:59 22:59 Other: Weight 106.594 kg Sleep Note - Sleep Data ESS Total: 3 - Sleep Note Sleep Note: Temperature: 97.7 F Pulse Rate: 64 Respiratory Rate: 16 Blood Pressure: 119/72 SpO2: 96 Height: 5 ft 7 in Weight: 106.594 kg BMI: Neck Circumference: 19.7
== END ==
LOC: 3 N SLEEP 13:33
PROVIDERS: ATTEND Internal Medicine
CPT/HCPCS: 99211

== ENCOUNTER 2024-06-26 08:02 | Day surgery (SDC) | payer MEDICARE ==
[2024-06-24 11:37] VITALS: BMI 36.0
[2024-06-26 08:30] VITALS: RESP 16; TEMP 96.6
[2024-06-26] MEDS: LACTATED RINGERS 1,000 ML IV SCH (08:34)
--- NOTE | 2024-06-26 08:34 | P.GSHP ---
History of Present Illness H&P Date: 06/26/24 CHIEF COMPLAINT: GERD and colon screen HISTORY OF PRESENT ILLNESS: The patient is a 68-year-old male who presents with gastroesophageal reflux disease and need for colon screen. Upper and lower endoscopy were offered for further evaluation and management. PAST MEDICAL HISTORY: Please see list. PAST SURGICAL HISTORY: Please see list. MEDICATIONS: Please see list. ALLERGIES: Please see list. SOCIAL HISTORY: No illicit drug use FAMILY HISTORY: No reports of Crohn disease or ulcerative colitis. REVIEW OF ORGAN SYSTEMS: CONSTITUTIONAL: No reports of fevers or chills. GI: Denies any blood in stools or constipation. PHYSICAL EXAM: VITAL SIGNS: Stable GENERAL: Well-developed pleasant in no acute distress. HEENT: No scleral icterus. Extraocular movements grossly intact. Moist buccal mucosa. NECK: Supple without lymphadenopathy. CHEST: Unlabored respirations. Equal bilateral excursions. CARDIOVASCULAR: Regular rate and rhythm. Distal 2+ pulses. ABDOMEN: Soft, nondistended. MUSCULOSKELETAL: No clubbing, cyanosis, or edema. ASSESSMENT: 1. Gastroesophageal reflux disease 2. Colon screen. PLAN: 1. Recommend proceeding with an upper and lower endoscopy Past Medical History Past Medical History: Diabetes Mellitus, GERD/Reflux, Hyperlipidemia, Hypertension, Osteoarthritis (OA), Sleep Apnea/CPAP/BIPAP Additional Past Medical History / Comment(s): Aortic aneurysm, being monitored, CPAP use. History of Any Multi-Drug Resistant Organisms: None Reported Past Surgical History: Heart Catheterization With Stent, Hernia Repair, Joint Replacement, Orthopedic Surgery Additional Past Surgical History / Comment(s): Bilateral knee replacements, right hip replacement. Past Anesthesia/Blood Transfusion Reactions: No Reported Reaction Date of Last Stent Placement:: 2004 Smoking Status: Former smoker - Past Family History Mother Family Medical History: Cancer Father Family Medical History: Hypertension Medications and Allergies Home Medications Medication Instructions Recorded Confirmed Type Aspirin [Adult Low Dose Aspirin EC] 81 mg PO Q48H 09/04/18 06/24/24 History Ibuprofen [Motrin] 800 mg PO Q8H PRN 03/04/20 06/24/24 History Labetalol [Trandate] 300 mg PO TID 03/04/20 06/26/24 History Ascorbic Acid [Vitamin C] 1,000 mg PO DAILY 06/24/24 06/24/24 History Atorvastatin [Lipitor] 40 mg PO HS 06/24/24 06/26/24 History Cholecalciferol [Vitamin D3 (25 100 mcg PO DAILY 06/24/24 06/24/24 History Mcg = 1000 Iu)] Dapagliflozin Propanediol [Farxiga] 10 mg PO DAILY 06/24/24 06/26/24 History Gabapentin 300 mg PO 1700 06/24/24 06/26/24 History Omeprazole 20 mg PO DAILY 06/24/24 06/26/24 History Spironolactone [Aldactone] 25 mg PO DAILY 06/24/24 06/26/24 History Valsartan 160 mg PO W/LUNCH 06/24/24 06/26/24 History clindamycin HCL 900 mg PO TID 06/24/24 06/26/24 History Allergies Allergy/AdvReac Type Severity Reaction Status Date / Time Penicillins Allergy Rash/Hives Verified 06/26/24 08:25 Surgical - Exam Vital Signs Temp Pulse Resp BP Pulse Ox 96.6 F L 71 16 125/78 95 06/26/24 08:28 06/26/24 08:28 06/26/24 08:28 06/26/24 08:28 06/26/24 08:28
[2024-06-26] MEDS: IV FLUID CONTINUATION 1,000 ML IV ONE (08:37)
[2024-06-26 08:42] LABS: Glucose,Whole Blood 112 mg/dL (70-110)
[2024-06-26] MEDS ORDERED: LIDOCAINE 1% INJ 10MG/ML (20 ML MDV) ONE (09:08)
[2024-06-26] MEDS ORDERED: PROPOFOL 10 MG/ML 20 ML VIAL IV ONE (09:08)
--- NOTE | 2024-06-26 09:23 | P.PCN ---
Date of Procedure: 06/26/24 Description of Procedure: PREOPERATIVE DIAGNOSIS: H. pylori gastritis Gastroesophageal reflux disease. Morbid obesity. POSTOPERATIVE DIAGNOSIS: Gastroesophageal reflux disease with erosive esophagitis Chronic gastritis. Diaphragmatic hiatal hernia OPERATION: Esophagogastroduodenoscopy with cold forceps biopsies along esophagus, antrum and duodenum SURGEON: Chasidy Boo MD ANESTHESIA: MAC. INDICATIONS: The patient is a 68-year-old male who presents with H. pylori gastritis and reflux disease. Benefits and risks of the procedure were described. Informed consent was obtained. DESCRIPTION: The patient was brought into the endoscopy suite and laid in the left lateral decubitus position. An Olympus gastroscope was passed along the posterior oropharynx down to the distal esophagus where the squamocolumnar junction was encountered at 40 cm from the incisors. The stomach was entered and no bile reflux was found. Additional findings are listed below. Biopsies with cold forceps were obtained of the antrum. The first through third portion of the duodenum was examined. Retroflexion of the scope confirmed Hill grade 3 lower esophageal valve. The squamocolumnar junction demonstrated LA grade B erosive esophagitis. The stomach was desufflated. The patient tolerated the procedure well. FINDINGS: Squamocolumnar junction 40 cm from the incisors. Diaphragmatic hiatus at 43 cm. Hiatal hernia, 3 cm, sliding-type Hill grade 3 lower esophageal valve. LA grade B erosive esophagitis. Biopsies obtained Biopsies obtained of the duodenum. Chronic gastritis with biopsies obtained. RECOMMENDATIONS: Omeprazole 40 mg daily May benefit from repair of hiatal hernia
--- NOTE | 2024-06-26 09:41 | P.PCN ---
Date of Procedure: 06/26/24 Description of Procedure: PREOPERATIVE DIAGNOSIS: Personal history of colon polyps Colonoscopy screening POSTOPERATIVE DIAGNOSIS: Tubular adenoma ascending colon Sigmoid diverticulosis Internal hemorrhoids, grade 2 OPERATION: Colonoscopy to the ileocecal valve and appendiceal orifice, cecum Colonoscopy with hot snare polypectomy SURGEON: Chasidy Boo MD. ANESTHESIA: MAC. INDICATIONS: The patient is an 68-year-old male who presents personal history of colon polyps. Last colonoscopy 5 years. Benefits and risks were described and informed consent was obtained. DESCRIPTION OF PROCEDURE: The patient had undergone Sutab prep. The patient had been brought into the operating room and laid in the left lateral decubitus position. After adequate intravenous sedation, the rectum was examined with 2% lidocaine jelly. The prostate was unremarkable. External hemorrhoids were encountered. The rectal tone was within normal limits. No lesions were palpated in the rectal vault. An Olympus colonoscope was advanced until the cecum, ileocecal valve and appendiceal orifice were clearly viewed. The prep was good. Sigmoid diverticulosis was encountered. Colonic polyps were found and removed. No evidence of focal colitis was found. Retroflexion of the scope demonstrated grade 2 internal hemorrhoids without active bleeding or inflammation. The colon was desufflated. The patient had tolerated the procedure well. Withdrawal time was over 6 minutes. FINDINGS: Aronchick preparation quality scale 2 (1-5) Internal hemorrhoids, grade 2 External hemorrhoids, grade 2. No arteriovenous malformations. Sigmoid diverticulosis Removal of 1 polyps: - Snare polypectomy ascending colon, 5 mm tubulovillous adenoma No focal colitis. RECOMMENDATIONS: Repeat colonoscopy 3 years, 2027 Plan - Discharge Summary Discharge Rx Participant: No New Discharge Prescriptions: New Omeprazole [PriLOSEC] 40 mg PO DAILY #14 cap Continue Aspirin [Adult Low Dose Aspirin EC] 81 mg PO Q48H Ibuprofen [Motrin] 800 mg PO Q8H PRN PRN Reason: Pain Labetalol [Trandate] 300 mg PO TID Atorvastatin [Lipitor] 40 mg PO HS clindamycin HCL 900 mg PO TID Valsartan 160 mg PO W/LUNCH Gabapentin 300 mg PO 1700 Cholecalciferol [Vitamin D3 (25 Mcg = 1000 Iu)] 100 mcg PO DAILY Spironolactone [Aldactone] 25 mg PO DAILY Dapagliflozin Propanediol [Farxiga] 10 mg PO DAILY Ascorbic Acid [Vitamin C] 1,000 mg PO DAILY Discontinued Omeprazole 20 mg PO DAILY Discharge Medication List Aspirin [Adult Low Dose Aspirin EC] 81 mg PO Q48H 09/04/18 [History] Ibuprofen [Motrin] 800 mg PO Q8H PRN 03/04/20 [History] Labetalol [Trandate] 300 mg PO TID 03/04/20 [History] Ascorbic Acid [Vitamin C] 1,000 mg PO DAILY 06/24/24 [History] Atorvastatin [Lipitor] 40 mg PO HS 06/24/24 [History] Cholecalciferol [Vitamin D3 (25 Mcg = 1000 Iu)] 100 mcg PO DAILY 06/24/24 [History] Dapagliflozin Propanediol [Farxiga] 10 mg PO DAILY 06/24/24 [History] Gabapentin 300 mg PO 1700 06/24/24 [History] Spironolactone [Aldactone] 25 mg PO DAILY 06/24/24 [History] Valsartan 160 mg PO W/LUNCH 06/24/24 [History] clindamycin HCL 900 mg PO TID 06/24/24 [History] Omeprazole [PriLOSEC] 40 mg PO DAILY #14 cap 06/26/24 [Rx] Follow up Appointment(s)/Referral(s): Chasidy Boo MD [STAFF PHYSICIAN] - 07/16/24 2:30 pm Patient Instructions/Handouts: Hiatal Hernia (DC), Gastritis (DC), Diverticulosis (GEN), Diverticulosis Diet (GEN) Activity/Diet/Wound Care/Special Instructions: Repeat colonoscopy 3 years2027 Discharge Disposition: HOME SELF-CARE
[2024-06-26 09:57] VITALS: BP 112/71; PULSE 72
== END 2024-06-26 10:40 | disposition home or self-care (01) ==
LOC: ORWHC2ENDO 08:02
PROVIDERS: ATTEND Surgery Plastic and Reconstructive Surgery
DX: Z12.11 Encounter for screening for malignant neoplasm of colon (principal); K29.50 Unspecified chronic gastritis without bleeding; D12.2 Benign neoplasm of ascending colon; K21.00 Gastro-esophageal reflux disease with esophagitis, without bleeding; K44.9 Diaphragmatic hernia without obstruction or gangrene; K57.30 Diverticulosis of large intestine without perforation or abscess without bleeding; K64.1 Second degree hemorrhoids; B96.81 Helicobacter pylori [H. pylori] as the cause of diseases classified elsewhere; E66.01 Morbid (severe) obesity due to excess calories; E11.9 Type 2 diabetes mellitus without complications; E78.5 Hyperlipidemia, unspecified; I10 Essential (primary) hypertension; G47.33 Obstructive sleep apnea (adult) (pediatric); M19.90 Unspecified osteoarthritis, unspecified site; Z98.890 Other specified postprocedural states; Z96.641 Presence of right artificial hip joint; Z96.653 Presence of artificial knee joint, bilateral; Z87.891 Personal history of nicotine dependence; Z82.49 Family history of ischemic heart disease and other diseases of the circulatory system; Z88.0 Allergy status to penicillin; Z79.84 Long term (current) use of oral hypoglycemic drugs; Z79.82 Long term (current) use of aspirin; Z79.1 Long term (current) use of non-steroidal anti-inflammatories (NSAID); Z79.02 Long term (current) use of antithrombotics/antiplatelets; Z79.899 Other long term (current) drug therapy
CPT/HCPCS: 45385; 43239; J2003; J2704; 88305

== ENCOUNTER → 2024-07-05 | Outpatient (CLI) | payer MEDICARE ==
[2024-07-05 15:42] LABS: Chol/HDL Ratio 3.79 Ratio
[2024-07-05 15:43] LABS: ALT 35 U/L (10-49); AST 22 U/L (14-35); LDL Cholesterol,Calculated 56.7 mg/dL (0.0-131.0)
== END | disposition home or self-care (01) ==
LOC: LABWHC1 08:41
PROVIDERS: ATTEND Internal Medicine
DX: E78.2 Mixed hyperlipidemia (principal)
CPT/HCPCS: 36415; 80061; 84450; 84460

== ENCOUNTER → 2024-09-11 | Outpatient (CLI) | payer MEDICARE ==
[2024-09-11 11:46] VITALS: BP 135/86; PULSE 66; RESP 16; TEMP 97.5
--- NOTE | 2024-09-11 12:34 | P.PROGSL ---
Subjective DATE: 09/11/2024 FOLLOW UP VISIT. Patient with obstructive sleep apnea hypopnea syndrome return to sleep center for follow-up visit. Information from previous visit have been reviewed. Patient is using PAP equipment every night for the whole night, getting PAP supplies in time. The patient does not have significant problems with the mask, PAP unit and humidification. [place] sleepiness scale is 2, which is normal. I checked information from PAP unit. PAP unit pressure 5-12, average 9.5 cm H2O. Usage is 100% for more then 4 hours, average 6.4 hours per night. Leak is 10l/m, which is in acceptable range. Apnea Hypopnea Index is 0.3, which is normal. CPAP unit is old, noisy, cover for air filter broken. MEDICATIONS have been reviewed, please see below. During physical exam: GENERAL: A pleasant patient without any distress. VITAL SIGNS: Please see below, weight is 232 lbs. HEENT: PERRLA, EOMI.low position of soft palate, Mallapati 4 . NECK: Supple. No JVD. LUNGS: Clear to percussion and to auscultation. Good air exchange. No wheezing or rhonchi. HEART: S1, S2 regular. ABDOMEN: Soft and nontender.[] EXTREMITIES: No clubbing or cyanosis. PRAWN TRAWLER HAND: Awake, alert, and oriented x3. No focal deficit. Impressions: 1. Obstructive sleep apnea-hypopnea syndrome. Patient demonstrated great compliance with treatment, benefiting from treatment. CPAP unit is old, needs to be replaced. 2. Obesity, BMI 37.4. 3. Hypertension. 4. Diabetes mellitus. 5. Peripheral neuropathy. 6. Hyperlipidemia. 7. Acid reflux. 8. Status post tonsillectomy. 9. Status post right hip replacement. 10. Status post bilateral knee replacement. Plan: 1. Continue using PAP equipment every night for the whole night. Prescription to replace AutoPap unit. 2. Sleep hygiene with regular time in bed for at least 7.5-8 hours 3. PAP unit should stay lower then position of the head. 4. Advised patient to remove all remaining water from humidifier canister daily and make it dry after each usage. Refill canister with fresh distilled water before each usage. 5. Watching weight. 6. Precautions related to driving. No driving if feel any sleepiness. 7. I will maintain prescription for PAP supplies including mask, tube, filters. 8. Follow up visit in 1-3 months after patient will get new CPAP unit to evaluate clinical response on treatment, compliance with treatment and [place] adjustments related to mask fitting pressure and humidification. Thank you very much for allowing me to participate in the management of your patient. Jovanny Salazar MD, PhD, FAASM. Diplomat of [employer], Sleep Medicine Board by [employer] [facility] [place] Objective - Vital Signs Vital Signs: Vital Signs Temp 97.5 F L 09/11/24 11:45 Pulse 66 09/11/24 11:45 Resp 16 09/11/24 11:45 BP 135/86 09/11/24 11:45 Pulse Ox 97 09/11/24 11:45 FiO2 Intake & Output 09/10/24 09/11/24 09/11/24 18:59 06:59 18:59 Weight 232 kg Home Medications: Home Medications Medication Instructions Recorded Confirmed Type Aspirin [Adult Low Dose Aspirin EC] 81 mg PO Q48H 09/04/18 09/11/24 History Ibuprofen [Motrin] 800 mg PO Q8H PRN 03/04/20 09/11/24 History Labetalol [Trandate] 300 mg PO TID 03/04/20 09/11/24 History Ascorbic Acid [Vitamin C] 1,000 mg PO DAILY 06/24/24 09/11/24 History Atorvastatin [Lipitor] 40 mg PO HS 06/24/24 09/11/24 History Cholecalciferol [Vitamin D3 (25 100 mcg PO DAILY 06/24/24 09/11/24 History Mcg = 1000 Iu)] Dapagliflozin Propanediol [Farxiga] 10 mg PO DAILY 06/24/24 09/11/24 History Gabapentin 300 mg PO 1700 06/24/24 09/11/24 History Spironolactone [Aldactone] 25 mg PO DAILY 06/24/24 09/11/24 History Valsartan 160 mg PO W/LUNCH 06/24/24 09/11/24 History clindamycin HCL 900 mg PO TID 06/24/24 06/26/24 History Omeprazole [PriLOSEC] 40 mg PO DAILY #14 cap 06/26/24 09/11/24 Rx
== END ==
LOC: 3 N SLEEP 11:34
PROVIDERS: ATTEND Internal Medicine
DX: G47.33 Obstructive sleep apnea (adult) (pediatric) (principal); E66.9 Obesity, unspecified; I10 Essential (primary) hypertension; E11.9 Type 2 diabetes mellitus without complications; G62.9 Polyneuropathy, unspecified; E78.5 Hyperlipidemia, unspecified; K21.9 Gastro-esophageal reflux disease without esophagitis; Z90.89 Acquired absence of other organs; Z96.653 Presence of artificial knee joint, bilateral; Z96.641 Presence of right artificial hip joint; Z68.37 Body mass index [BMI] 37.0-37.9, adult; Z99.89 Dependence on other enabling machines and devices; Z87.891 Personal history of nicotine dependence; Z88.0 Allergy status to penicillin
CPT/HCPCS: 99212